=== PATIENT | female | born 1985 | race Caucasian/White ===

== ENCOUNTER 2019-06-07 17:48 | Emergency (ER) | payer OTHER ==
[~2019-06-07] VITALS: Ht 177.8 cm; Wt 58.2 kg
[~2019-06-07 17:48] MED LIST: ANTI ANXIETY MED; ATIVAN 0.50.5 MG/TAB PO; ATIVAN 1MG T1 MG/TAB PO; CELEXA; DOXYCYCLINE 10100 MG PO; LEXAPRO 10MG10 MG PO; LORTAB 5/500 501 TAB PO; METRONIDAZOLE500 MG PO; NO HOME MEDICATIONS; PHENERGAN 25 TA25 MG PO; ZITHROMAX 250M250 MG PO; ZOLOFT 100MG100 MG PO
[2019-06-07 18:25] LABS: COLLECTION METHOD CLEAN CATCH
[2019-06-07 18:33] LABS: PH 5 (5-8); SQUAMOUS EPITHELIAL 0-2 /hpf; URINE APPEARANCE Clear; URINE BACTERIA None Seen /hpf; URINE BILIRUBIN Negative (NEGATIVE); URINE BLOOD 1+ (NEGATIVE); URINE COLOR Yellow; URINE GLUCOSE Negative (NEGATIVE); URINE KETONE Negative (NEGATIVE); URINE LEUKOCYTE ESTERASE 2+ (NEGATIVE); URINE NITRATE Negative (NEGATIVE); URINE PROTEIN(semi-quant) Negative (NEGATIVE); URINE RBC 0-2 /hpf; URINE UROBILINOGEN Negative (NEGATIVE)
[2019-06-07] MEDS ORDERED: NORVASC 5MG5 MG/TAB PO (20:47)
[2019-06-07] MEDS ORDERED: CARAFATE 1GM1 G PO (20:47)
[2019-06-07] MEDS ORDERED: PRIL40 PO (20:48)
[2019-06-07] MEDS ORDERED: ATIVAN 0.50.5 MG/TAB PO (20:48)
[2019-06-07] MEDS ORDERED: KLONOPIN 0.5MG0.5 MG PO (20:50)
[2019-06-08] MEDS ORDERED: DOXYCYCLINE 10100 MG PO (21:27)
[2019-06-09] MEDS ORDERED: CEPHALEXIN500 M1 PO (10:56)
== END 2019-06-07 21:20 | disposition home or self-care (01) ==
LOC: COL.ER 17:48
PROVIDERS: Emergency Medicine
DX: A54.01 Gonococcal cystitis and urethritis, unspecified (principal)
CPT/HCPCS: J0696

== ENCOUNTER 2021-11-14 17:37 | Emergency (ER) | payer OTHER ==
[~2021-11-14] VITALS: Ht 177.8 cm; Wt 54.5 kg
[~2021-11-14 17:37] MED LIST changes: +CARAFATE 1GM1 G PO; +CEPHALEXIN500 M1 PO; +KLONOPIN 0.5MG0.5 MG PO; +NORVASC 5MG5 MG/TAB PO; +PRIL40 PO
[2021-11-14 17:46] VITALS: TEMP 97.2
[2021-11-14] MEDS ORDERED: SEPTRA DS 8001 TAB PO (21:00)
[2021-11-14 22:45] VITALS: BP 144/78; PULSE 76
[2021-11-15] MEDS ORDERED: NORCO 325 MG-51 TAB PO (20:31)
== END 2021-11-14 22:45 | disposition home or self-care (01) ==
LOC: COL.ER 17:37
DX: N75.0 Cyst of Bartholin's gland (principal); A54.02 Gonococcal vulvovaginitis, unspecified; F17.210 Nicotine dependence, cigarettes, uncomplicated; Z28.310 Unvaccinated for COVID-19; Z88.1 Allergy status to other antibiotic agents

== ENCOUNTER 2021-11-15 19:17 | Emergency (ER) | payer OTHER ==
[~2021-11-15] VITALS: Ht 177.8 cm; Wt 55.5 kg
[~2021-11-15 19:17] MED LIST changes: +SEPTRA DS 8001 TAB PO
[2021-11-15 19:27] VITALS: TEMP 98
[2021-11-15] MEDS ORDERED: NORCO 325 MG-51 TAB PO (20:31)
[2021-11-15 20:44] VITALS: BP 117/77; PULSE 110
== END 2021-11-15 20:44 | disposition home or self-care (01) ==
LOC: COL.ER 19:17
DX: A54.9 Gonococcal infection, unspecified (principal); N75.0 Cyst of Bartholin's gland; F17.210 Nicotine dependence, cigarettes, uncomplicated
CPT/HCPCS: J0696